=== PATIENT | female | born 1995 | race Caucasian/White ===

== ENCOUNTER 2024-03-10 09:16 | Emergency (ER) | payer OTHER ==
[2024-03-10 09:41] LABS: BASOPHILS % (AUTO) 0.4 %; EOSINOPHILS # (AUTO) 0.1 10^3/uL (0.0-0.7); HCT - HEMATOCRIT 41.7 % (37.0-47.0); HGB - HEMOGLOBIN 13.1 g/dL (12.0-16.0); LYMPHOCYTES # (AUTO) 2.4 10^3/uL (1.5-3.5); LYMPHOCYTES % (AUTO) 30.9 %; MEAN CORPUSCULAR HEMOGLOBIN 27.8 pg (27.0-31.0); MEAN CORPUSCULAR HGB CONC 31.4 g/dL (32.0-36.0); MEAN CORPUSCULAR VOLUME 88.5 fL (81.0-99.0); MEAN PLATELET VOLUME 9.8 fL (7.9-10.8); MONOCYTES # (AUTO) 0.4 10^3/uL (0.0-1.0); MONOCYTES % (AUTO) 4.8 %; NEUTROPHILS # (AUTO) 4.8 10^3/uL (1.5-6.6); NEUTROPHILS % (AUTO) 62.6 %; PLT - PLATELET COUNT 459 10^3/uL (130-450); RED BLOOD COUNT 4.71 10^6/uL (4.20-5.40); RED CELL DISTRIBUTION WIDTH 13.1 % (12.0-15.0); WHITE BLOOD COUNT 7.7 x10^3/uL (4.8-10.8)
--- NOTE | 2024-03-10 09:48 | ED Physician Documentation ---
PD HPI FEMALE - Stated complaint Stated Complaint: OB PX - Chief complaint Chief Complaint: Abd Pain - Additional information Additional information: This is a generally healthy 29-year-old female who is -0-1-0 with 1 prior 9-week miscarriage requiring D&C. She presents with some cramping and concerns about her . She was previously followed by an OB in [place] and she has been seen fastidiously following both her progesterone and her beta hCG levels. She states that her progesterone level has been dropping she states. She yesterday had a beta-hCG of 1820 she states. [facility] has not been seen yet seen on March 23. She developed some cramping yesterday which she described as like menstrual cramping. No bleeding. No nausea fever urinary symptoms. Review of Systems Constitutional: denies: Fever, Chills : reports: Now EGA. 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 - Present Medications Home Medications: Ambulatory Orders Medication Instructions Recorded Confirmed No Known Home Medications 03/10/24 03/10/24 - Allergies Allergies/Adverse Reactions: Allergies Allergy/AdvReac Type Severity Reaction Status Date / Time No Known Drug Allergies Allergy Verified 03/10/24 09:23 - Social History Does the pt smoke?: No Smoking Status: Never smoker Does the pt drink ETOH?: No Does the pt have substance abuse?: No - Immunizations Immunizations are current?: Yes - POLST Patient has POLST: No PD ED PE NORMAL - Vitals Vital signs reviewed: Yes - General General: Alert and oriented X 3 - HEENT HEENT: Atraumatic - Neck Neck: Supple, no meningeal sign - Cardiac Cardiac: RRR, No murmur - Respiratory Respiratory: No respiratory distress - Abdomen Abdomen: Normal bowel sounds Results - Vitals Vitals: Vital Signs - 24 hr 03/10/24 03/10/24 09:18 11:23 Temperature 36.2 C L Heart Rate 74 71 Respiratory 20 18 Rate Blood Pressure 142/96 H 117/80 O2 Saturation 100 97 Oxygen O2 Source Room air - Labs Labs: Laboratory Tests 08/01/2603/10/24 03/10/24 09:28 09:35 09:35 WBC 7.7 RBC 4.71 Hgb 13.1 Hct 41.7 MCV 88.5 MCH 27.8 MCHC 31.4 L RDW 13.1 Plt Count 459 H MPV 9.8 Neut # (Auto) 4.8 Lymph # (Auto) 2.4 [place] # (Auto) 0.4 Eos # (Auto) 0.1 Baso # (Auto) 0.0 Absolute Nucleated RBC 0.00 Nucleated RBC % 0.0 Sodium 134 L Potassium 3.8 Chloride 102 Carbon Dioxide 27 Anion Gap 5.0 L BUN 10 Creatinine 0.6 Estimated GFR (MDRD) 119 Glucose 103 Calcium 9.7 Total Bilirubin 0.3 AST 13 ALT 15 Alkaline Phosphatase 47 Total Protein 7.4 Albumin 4.6 Globulin 2.8 Albumin/Globulin Ratio 1.6 Lipase 23 Beta HCG, Quant Urine HCG, Qual POSITIVE Blood Type 03/10/24 03/10/24 09:35 09:35 WBC RBC Hgb Hct MCV MCH MCHC RDW Plt Count MPV Neut # (Auto) Lymph # (Auto) [place] # (Auto) Eos # (Auto) Baso # (Auto) Absolute Nucleated RBC Nucleated RBC % Sodium Potassium Chloride Carbon Dioxide Anion Gap BUN Creatinine Estimated GFR (MDRD) Glucose Calcium Total Bilirubin AST ALT Alkaline Phosphatase Total Protein Albumin Globulin Albumin/Globulin Ratio Lipase Beta HCG, Quant 4081.4 Urine HCG, Qual Blood Type A POSITIVE PD Medical Decision Making - ED course Complexity details: reviewed old records, reviewed results ED course: Considered differential diagnosis threatened miscarriage versus discomfort of early . No sign of this is appendicitis or other cause of lower abdominal cramping. US shows 5W3d gest sac, no pole. nl ovaries Ultrasound shows IUP no ectopic. Her beta hCG continues to increase. She is Rh+ send indication for RhoGAM. Will reassure her have her closely follow-up with OB in the outpatient world for a follow-up beta-hCG in 4872 hours. Departure - Departure Disposition: 01 Home, Self Care Clinical Impression: Pelvic pain affecting in first trimester, antepartum Condition: Good Instructions: ED Miscarriage Poss Comments: Your ultrasound today shows a 5-week 3-day gestational sac. Likely too early to see the fetus. Your hCG appears to be going up relative to the level you reported yesterday. This is reassuring. Will continue to trend these and we will have you follow-up with another hCG in 2 to 3 days. No sign of ectopic (tubal) , This is good news. Call to be seen at with [facility] clinic in the next 2 to 3 days. Forms: PCP List
[2024-03-10 09:55] LABS: ALBUMIN 4.6 g/dL (3.2-5.5); ALBUMIN/GLOBULIN RATIO 1.6 (1.0-2.2); BILIRUBIN,TOTAL 0.3 mg/dL (0.2-1.0); CALCIUM 9.7 mg/dL (8.5-10.3); CREATININE 0.6 mg/dL (0.6-1.3); POTASSIUM 3.8 mmol/L (3.5-4.5); TOTAL PROTEIN 7.4 g/dL (6.4-8.9)
[2024-03-10 10:02] LABS: HCG UR QUAL POSITIVE
[2024-03-10 11:40] VITALS: BP 117/80; O2SAT 97
--- NOTE | 2024-03-10 12:08 | Ultrasound Report ---
PROCEDURE: OB 1st Trimester w/TV INDICATIONS: Abd cramping. pmh of spontaneous ab OUTSIDE/PRIOR DATING DATA: Last menstrual period (LMP): 01/31/2024. LMP-based estimated date of delivery (JAMES): 11/06/2024. First dating scan (date and location): Today. Estimated date of delivery (JAMES) from first dating scan: 11/06/2024. TECHNIQUE: Real-time scanning was performed of the fetus and maternal pelvic organs, with image documentation. Endovaginal scanning was also performed to better visualize the fetus and maternal ovaries. COMPARISON: None. FINDINGS: Intrauterine gestational sac measures 0.65 cm. No pole identified. No definite yolk sac. IMPRESSION: of unknown viability. Recommend clinical and imaging follow-up in 14 days or sooner. Reviewed by: Tremaine Mclean MD on 03/10/2024 12:07 PM PDT Approved by: Tremaine Mclean MD on 03/10/2024 12:07 PM PDT Station ID: [id number]
[2024-03-10 13:10] LABS: CHLAMYDIA TRACHOMATIS DNA NEGATIVE (NEGATIVE); NEISSERIA GONORRHOEAE DNA NEGATIVE (NEGATIVE); TRICHOMONAS VAGINALIS DNA NEGATIVE (NEGATIVE)
== END 2024-03-10 12:09 | disposition home or self-care (01) ==
LOC: ED 09:16
DX: O26.891 Other specified pregnancy related conditions, first trimester (principal); R10.2 Pelvic and perineal pain; Z3A.01 Less than 8 weeks gestation of pregnancy
CPT/HCPCS: 36415; 80053; 81025; 83690; 84144; 84702; 85025; 86900; 86901; 87491; 87591; 87661; 99283; 99284

== ENCOUNTER 2024-03-23 08:00 | Outpatient (CLI) | payer OTHER ==
[2024-03-23 17:43] LABS: BILIRUBIN,URINE NEGATIVE (NEGATIVE); GLUCOSE, URINE (UA) NEGATIVE (NEGATIVE); KETONES,URINE (UA) NEGATIVE (NEGATIVE); LEUKOCYTE ESTERASE, URINE NEGATIVE (NEGATIVE); NITRITE,URINE NEGATIVE (NEGATIVE); OCCULT BLOOD,URINE NEGATIVE (NEGATIVE); PH,URINE 7.5 PH (5.0-7.5); PROTEIN,URINE NEGATIVE (NEGATIVE); UROBILINOGEN,URINE 0.2 (NORMAL) E.U./dL (NORMAL)
[2024-03-23 18:16] LABS: BACTERIA,URINE Few /HPF (None Seen); CLARITY,URINE CLEAR (CLEAR); RBC,URINE 0-5 /HPF (0-5); SQUAMOUS EPITHELIAL CELL,UR FEW Squamous (<= Few); WBC,URINE 0-3 /HPF (0-5)
== END 2024-03-23 23:59 | disposition home or self-care (01) ==
LOC: LAB.WC 08:00
PROVIDERS: ATTEND Obstetrics & Gynecology
DX: Z34.81 Encounter for supervision of other normal pregnancy, first trimester (principal)
CPT/HCPCS: 81001; 87086

== ENCOUNTER 2024-03-23 09:03 | Outpatient (CLI) | payer OTHER ==
--- NOTE | 2024-03-23 21:12 | Ultrasound Report ---
PROCEDURE: OB 1st Trimester INDICATIONS: POSITIVE TEST OUTSIDE/PRIOR DATING DATA: Last menstrual period (LMP): 01/23/2024. LMP-based estimated date of delivery (JAMES): 11/06/2024. First dating scan (date and location): 03/10/2024. Estimated date of delivery (JAMES) from first dating scan: 11/06/2024. TECHNIQUE: Real-time scanning was performed of the fetus and maternal pelvic organs, with image documentation. COMPARISON: 03/10/2024 FINDINGS: Embryo: There is an intrauterine gestational sac seen, with a pole present, which measures 0.8 4 cm, which corresponds to an estimated gestational age of 6 weeks 6 days. cardiac activity is seen, with a measured heart rate of 126 bpm. No significant perigestational/subchorionic hemorrhag e can be seen. Other: No perigestational fluid collection. Measurement variability in dating: +/- 4 weeks by LMP, +/- 7 days by mean sac diameter (use before 6 weeks gestation if crown-rump length not able to be measured), +/- 5 days by crown-rump length (6-12 weeks gestation). Maternal organs: Ovaries appear within normal limits. IMPRESSION: Single live intrauterine . Normal interval growth compared to the prior examination. Reviewed by: Darrell Donohue MD on 03/23/2024 8:11 PM JESUS MANUEL Approved by: Darrell Donohue MD on 03/23/2024 8:11 PM JESUS MANUEL Station ID: [id number]
== END 2024-03-23 09:04 | disposition home or self-care (01) ==
LOC: DI 09:03
PROVIDERS: ATTEND Obstetrics & Gynecology
DX: Z34.91 Encounter for supervision of normal pregnancy, unspecified, first trimester (principal)
CPT/HCPCS: 81001; 87086